=== PATIENT | male | born 2000 | race Caucasian/White ===

== ENCOUNTER 2022-03-19 14:40 | Emergency (ER) | payer OTHER ==
[~2022-03-19] VITALS: Ht 177.8 cm; Wt 77.1 kg
--- NOTE | 2022-03-19 14:42 | NUR ---
PT BIBA, BLS, AMBULATED TO BED 03.
[2022-03-19 14:46] VITALS: BP 120/84
--- NOTE | 2022-03-19 14:51 | NUR ---
21 YO M BIBA FROM WORK W C/O OF DRINKING AN ENERGY DRINK AND BECOMING VERY JITTERY. "I FELT MY HEART BEATING VERY FAST" DENIES N/V/D. CURRENT HEART RATE 76. PMH: DEPRESSION MEDS: ESCITALOPRAM
--- NOTE | 2022-03-19 16:40 | NUR ---
Patient discharged with v/s stable. Written and verbal after care instructions given and explained. Patient alert, oriented and verbalized understanding of instructions. Ambulatory with steady gait. All questions addressed prior to discharge. ID band removed. Patient advised to follow up with PMD. Opportunity to ask questions provided and answered.
== END 2022-03-19 16:40 | disposition home or self-care (01) ==
LOC: MED 14:40
DX: R00.2 Palpitations (principal); T43.615A Adverse effect of caffeine, initial encounter; F41.9 Anxiety disorder, unspecified; F32.9 Major depressive disorder, single episode, unspecified; Y92.89 Other specified places as the place of occurrence of the external cause
CPT/HCPCS: 93005; 99283